=== PATIENT | female | born 1990 | race Caucasian/White ===

== ENCOUNTER → 2019-06-18 16:10 | Outpatient (CLI) | payer OTHER, SELFPAY ==
[2019-06-18 16:42] LABS: Add Manual Diff / Slide Review NO; Basophils Absolute Auto 0 /uL (0-100); Basophils Percent Auto 0.2 % (0-2); Eosinophils Absolute Auto 0 /uL (0-450); Eosinophils Percent Auto 0.6 % (2-4); Hematocrit 37.5 % (36-46); Hemoglobin 12.5 g/dL (12.0-16.0); Lymphocytes Absolute Auto 1900 /uL (1100-4500); Lymphocytes Percent Auto 22.6 % (25-40); Mean Corpuscular HGB Conc 33.2 % (30-36); Mean Corpuscular Hemoglobin 29.4 PG (26-34); Mean Corpuscular Volume 88.5 fL (80-100); Monocytes Absolute Auto 400 /uL (0-900); Monocytes Percent Auto 4.3 % (3-14); Neutrophils Absolute Auto 6200 /uL (1500-7000); Neutrophils Percent Auto 72.3 % (50-75); Platelet Count 238 X10^3/uL (150-400); Red Blood Cell Count 4.23 X10^6/uL (4.0-5.2); Red Cell Distribution Width 13.8 % (11.6-14.8); White Blood Cell Count 8.6 X10^3/uL (4.5-11.0)
[2019-06-18 20:39] LABS: Urine N gonorrhoeae NOT DETECTED
[2019-06-18 20:40] LABS: Urine Chlamydia NOT DETECTED
[2019-06-19 05:47] LABS: RPR Screen Non Reactive (Non Reactive)
[2019-06-19 06:39] LABS: Varicella IgG Antibody 626 index (Immune >165)
[2019-06-19 16:36] LABS: Hepatitis B Surface Antigen NEGATIVE s/c (NEGATIVE); Rubella Antibody IgG 9.4 IU/mL (>15)
[2019-06-19 16:47] LABS: HIV 1 & 2 Ab/Ag 4th Gen Combo NEGATIVE (NEGATIVE); Hep C Virus Ab w/Reflex Quant NEGATIVE s/c (NEGATIVE)
== END ==
PROVIDERS: Referring Provider Specialist; Visit Provider Specialist
DX: Z34.81 Encounter for supervision of other normal pregnancy, first trimester (principal)
CPT/HCPCS: 36415; 80055; 86787; 86803; 86850; 86900; 86901; 87389; 87491; 87591

== ENCOUNTER → 2019-08-25 12:26 | Outpatient (CLI) | payer OTHER, SELFPAY ==
--- NOTE | 2019-08-25 12:28 | DI.US.S_ITS ---
PROCEDURE: US OB >= 14 WEEKS FETUS INDICATIONS: ANATOMY OUTSIDE/PRIOR DATING DATA: Last menstrual period (LMP): 03/30/19. LMP-based estimated date of delivery (JEANMARIE): 01/04/20. First dating scan (date and location): 06/18/19. Estimated date of delivery (JEANMARIE) from first dating scan: 01/13/20. TECHNIQUE: Real-time scanning was performed of the fetus, with image documentation and biometric measurements. Endovaginal scanning: No COMPARISON: [facility], , OB <= 14 WEEKS FETUS, 06/18/2019, 15:39. FINDINGS: General: A single living intrauterine gestation is present. Presentation: Transverse Placenta: Placental position is posterior, without previa. Amniotic fluid index: 7.2 cm, normal range is 5-24 cm. heart rate: 147 beats per minute. Maternal cervical canal: 7.2 cm long. Normal lower limit is 2.5 cm. biometrics: Biparietal diameter: 20 weeks 3 days Head circumference: 20 weeks 5 days Abdominal circumference: 21 weeks Femur length: 20 weeks 6 days Estimated gestational age from initial scan: 19 weeks 6 days Composite gestational age from present scan: 20 weeks 5 days Estimated weight and percentile: 32 g; 93rd percentile Measurement variability for biometric dating: +/- 7 days from 14 weeks to 15 weeks 6 days gestation, +/- 10 days from 16 weeks to 21 weeks 6 days gestation, +/- 2 weeks from 22 weeks to 27 weeks 6 days gestation, +/- 3 weeks for 28 weeks gestation or later. weight reference: 4500 g or EFW >90/95% is considered macrosomia or large for gestational age. EFW <10% is small for gestational age. EFW 5% or less is considered intra-uterine growth restriction. Anatomic survey: Neuro: Ventricles are non-dilated at less than 10 mm. Cisterna magna is normal at 3-11 mm. Cerebellum is normal in size and morphology. Nuchal skin fold: Normal at less than 6 mm between 14-21 weeks gestational age. Face: Suboptimally visualized. Spine: No evidence for spina bifida. Heart: 4-chambered heart is present, with normal ventricular outflow tracts. Diaphragm: Diaphragm is intact. Stomach: Left-sided stomach is present. Kidneys: No hydronephrosis. Normal is less than 5 mm in 2nd trimester, less than 7 mm in 3rd trimester. Cord: 3-vessel cord has orthotopic insertion. Bladder: Normal in size. Extremities: All 4 extremities identified. IMPRESSION: 1. Single living IUP redemonstrated and interval growth is upper limits of normal. face suboptimally visualized; otherwise normal anatomy. Followup recommended. Dictated by: Ken TYSON Interpreted: Chino Richmond MD on 08/25/2019 at 14:30 Approved by: Chino Richmond M.D. on 08/26/2019 at 13:08
[2019-08-27 20:36] LABS: AFP, Serum 50.3 ng/mL (.); Calc Gestational Age Ultrasound (.); Estriol, Free 1.75 ng/mL (.); Inhibin A, Dimeric 135.14 pg/mL (.); Inhibin A, MoM 0.86 (.); Maternal Ethnicity Caucasian (.); Maternal Weight 212 lbs (.); Number of Fetuses No (.); OSBR Risk 1 IN 8106 (.); Results Report (.); Test Results *Screen Negative* (.); hCG, MoM 1.45 (.); hCG, Serum 28984 mIU/mL (.)
== END ==
PROVIDERS: Referring Provider Specialist; Visit Provider Specialist
DX: Z34.82 Encounter for supervision of other normal pregnancy, second trimester (principal); Z3A.20 20 weeks gestation of pregnancy
CPT/HCPCS: 36415; 76811; 82105; 82677; 84702; 86336; 87086

== ENCOUNTER → 2019-08-25 15:15 | Outpatient (CLI) | payer OTHER, SELFPAY | PROVIDERS: Visit Provider Specialist | DX: Z34.82 Encounter for supervision of other normal pregnancy, second trimester (principal) | CPT/HCPCS: 87086 ==

== ENCOUNTER → 2019-10-02 09:04 | Outpatient (CLI) | payer OTHER, SELFPAY ==
[2019-10-02 11:24] LABS: Hematocrit 36.8 % (36-46); Hemoglobin 12.4 g/dL (12.0-16.0)
[2019-10-02 11:51] LABS: GTT (PREG) 1 Hour PP 50gm Dose 64 mg/dL (76-139)
== END ==
PROVIDERS: PCP Specialist; Referring Provider Specialist; Visit Provider Specialist
DX: O26.899 Other specified pregnancy related conditions, unspecified trimester (principal); Z67.91 Unspecified blood type, Rh negative
CPT/HCPCS: 36415; 82950; 85014; 85018; 86850

== ENCOUNTER → 2019-12-22 10:35 | Outpatient (CLI) | payer OTHER, SELFPAY ==
[2019-12-23 12:09] LABS: Strep Grp B PCR NEG for Grp B Strep
== END ==
PROVIDERS: PCP Specialist; Visit Provider Obstetrics & Gynecology
DX: Z34.83 Encounter for supervision of other normal pregnancy, third trimester (principal); Z3A.36 36 weeks gestation of pregnancy
CPT/HCPCS: 87653

== ENCOUNTER 2020-01-17 04:01 | Inpatient (IN) | payer OTHER, SELFPAY ==
[2020-01-17] MEDS: LACTATED RINGERS 1,000 ML 100 ML IV ×2 (04:29→06:49)
[2020-01-17 04:34] LABS: Add Manual Diff / Slide Review NO; Basophils Absolute Auto 0 /uL (0-100); Basophils Percent Auto 0.2 % (0-2); Eosinophils Absolute Auto 0 /uL (0-450); Eosinophils Percent Auto 0.1 % (2-4); Hematocrit 36.9 % (36-46); Hemoglobin 12.5 g/dL (12.0-16.0); Lymphocytes Absolute Auto 1700 /uL (1100-4500); Lymphocytes Percent Auto 12.9 % (25-40); Mean Corpuscular HGB Conc 33.8 % (30-36); Mean Corpuscular Hemoglobin 29.1 PG (26-34); Mean Corpuscular Volume 86.1 fL (80-100); Monocytes Absolute Auto 900 /uL (0-900); Monocytes Percent Auto 6.7 % (3-14); Neutrophils Absolute Auto 10300 /uL (1500-7000); Neutrophils Percent Auto 80.1 % (50-75); Platelet Count 221 X10^3/uL (150-400); Red Blood Cell Count 4.29 X10^6/uL (4.0-5.2); Red Cell Distribution Width 13.8 % (11.6-14.8); White Blood Cell Count 12.8 X10^3/uL (4.5-11.0)
[2020-01-17 04:35] LABS: COVID19 -Nasal RAPID Negative (Negative)
[2020-01-17] MEDS: FENT 2MCG/ML BUPIV 0.125% EPI 200 MCG/100 ML PLAST..BAG 10 MCG EPIDURAL (05:00)
--- NOTE | 2020-01-17 08:21 | P.HPOB_ITS ---
OB HPI Date/Time Date of admission: 01/17/20 Date Patient Seen: 01/17/20 Time Patient Seen: 07:30 History of Present Condition Chief complaint: OBS : 2 Para: 1 Estimated Date of Delivery: 01/13/20 Estimated Gestational Age (weeks): 40 Narrative: Olga Carney is a 29 year old G2 now P2 002 who presented at 40 w eeks 4 days at 5 cm dilated, with SROM for thick meconium shortly after arrival. The patient progressed rapidly through the active stage of labor and after short 2nd stage, was delivered of a healthy baby boy as detailed in the delivery note. The patient reports that prior to beginning contractions, she had no obstetrical or other complaints. She has had otherwise uncomplicated , and has a history of uncomplicated term vaginal delivery of an 8 lb 14 oz baby girl. She has no contributory medical, surgical, family, or social history. History of Present care: good care, initiated at week # (10) and number of visits (10) Dating criteria: based on 1st trimester US only Ultrasounds: normal 1st trimester US and normal mid trimester US Obstetrical complications: none Medical complications: none Preadmission Labs Blood type: 0 (-) negative (Receive RhoGAM at 28 weeks) -: Antibody screen: negative, GBS status: negative, HBsAG: negative, HIV: negative and RPR/VDLR: negative -: Chlamydia screen: not detected and Gonorrhea screen: not detected -: Rubella: not immune and Varicella: immune Quad screen: Normal Urine: wnl 1 hr GTT: 64 Prior (ies) History: G1: 05/20/18, , 40 wks, F, 8#14 (per patient), uncomplicated Evaluation Evaluation Baseline heart rate: 140 Variability: Moderate (11-25) monitor accelerations: Present monitor decelerations: Variable Uterine Contraction Intensity: Strong/Firm Laboratory results: Laboratory Tests 01/17/20 01/17/20 01/17/20 04:15 04:25 04:25 WBC 12.8 H RBC 4.29 Hgb 12.5 Hct 36.9 MCV 86.1 MCH 29.1 MCHC 33.8 RDW 13.8 Plt Count 221 Neut % (Auto) 80.1 H Lymph % (Auto) 12.9 L Sanders % (Auto) 6.7 Eos % (Auto) 0.1 L Baso % (Auto) 0.2 Neut # (Auto) 02710 H Lymph # (Auto) 1700 Sanders # (Auto) 900 Eos # (Auto) 0 Baso # (Auto) 0 COVID-19 PCR Negative Blood Type O Negative Antibody Screen Negative PFSH Medical History Chicken pox (Resolved ~1998) Genital warts (Inactive ~2013) Migraines (Acute) (spontaneous vaginal delivery) (Acute ~05/20/18) Surgical History Anesthesia (Resolved) H/O wisdom tooth extraction (Acute) S/P nasal septoplasty (Acute) Family History Mother No problems noted. Father Hypertension Grandmother No problems noted. Grandfather No problems noted. Grandmother Myocardial infarction Grandfather Cancer Colon cancer Social History marital status: number of children: 1 lives independently: Yes pets and animals: No education level: college (BA ) occupational status: employed current occupational exposures/hazards: No Previous occupational history: traveling missionary special luzmaria needs: No Smoking Status: Never smoker second hand exposure: No alcohol intake: former (non- : social ) substance use type: does not use Meds Home Medications and Allergies Home Medications Medication Instructions Recorded Confirmed Type ascorbic acid (vitamin C) 1,000 mg 500 mg PO DAILY 06/18/19 01/17/20 History tablet cholecalciferol (vitamin D3) 25 25 mcg PO DAILY 06/18/19 01/17/20 History mcg (1,000 unit) capsule prenat.vits,rusty,[id number] 1 tab PO DAILY 06/18/19 01/17/20 History Allergies Allergy/AdvReac Type Severity Reaction Status Date / Time No Known Drug Allergies Allergy Verified 01/17/20 04:31 Review of Systems Constitutional Constitutional: Reports system reviewed and no additional complaints, except as documented Cardiovascular Cardiovascular: Reports system reviewed and no additional complaints, except as documented Respiratory Respiratory: Reports system reviewed and no additional complaints, except as documented Gastrointestinal Gastrointestinal: Reports system reviewed and no additional complaints, except as documented Genitourinary Genitourinary: Reports system reviewed and no additional complaints, except as documented Neurologic Neurologic: Reports system reviewed and no additional complaints, except as documented Exam Vital Signs (past 8 hours): 119/74, P 64 Const General: cooperative, healthy appearing and comfortable GI Palpation: soft and No tender Objective Labs Result Diagrams: 01/17/20 04:25 Labs: Laboratory Results - last 24 hr 01/17/20 01/17/20 01/17/20 04:15 04:25 04:25 WBC 12.8 H RBC 4.29 Hgb 12.5 Hct 36.9 MCV 86.1 MCH 29.1 MCHC 33.8 RDW 13.8 Plt Count 221 Neut % (Auto) 80.1 H Lymph % (Auto) 12.9 L Sanders % (Auto) 6.7 Eos % (Auto) 0.1 L Baso % (Auto) 0.2 Neut # (Auto) 73080 H Lymph # (Auto) 1700 Sanders # (Auto) 900 Eos # (Auto) 0 Baso # (Auto) 0 COVID-19 PCR Negative Blood Type O Negative Antibody Screen Negative Assessment and Plan Assessment and Plan Assessment and Plan narrative: Patient doing well immediately s/p uncomplicated vaginal delivery. For routine care.
--- NOTE | 2020-01-17 08:31 | PM.OBPRVD ---
Events: Meconium Stained Fluid Labor & Delivery Delivery date: 01/17/20 Intrapartal events: Acceleration and Deceleration Delivery monitor: external FHT and external uterine Route of delivery: Episiotomy description: None L&D Laceration Description: Perineal - 2nd Degree Delivery repair: vicryl Estimated blood loss (mL): 100 Anesthesia type: Epidural Narrative: This patient is a 29-year-old now para 2 who presented in active labor, progressed, and was delivered of a healthy baby boy after short 2nd stage. Patient was noted to have thick meconium after spontaneous rupture of membranes. A loose nuchal cord was reduced at the perineum, and the shoulders delivered with ease. Delayed cord clamping was performed with the baby on the maternal abdomen. A second-degree perineal laceration was repaired in the usual fashion with 3-0 Vicryl, and the placenta delivered spontaneously and intact shortly after delivery and with a three-vessel cord. The patient received 30 milliunits of Pitocin per usual protocol, the EBL was 100 cc. There were no intrapartum or immediate complications. Weight was 10+4, Apgars 8+9. [place] Baby 1: gender: Male Presentation: vertex position: Right Occiput Anterior cord vessel description: Nuchal Cord (x1) score (1 min): 8 score (5 min): 9 Plan for aftercare: Routine care
[2020-01-17] MEDS: IBUPROFEN 600 MG TABLET PO ×2 (16:55→23:56)
[2020-01-17] MEDS: ACETAMINOPHEN 325 MG TABLET 650 MG PO (19:25)
[2020-01-18] MEDS: IBUPROFEN 600 MG TABLET PO (07:42)
--- NOTE | 2020-01-18 09:58 | PM.OBDS.1 ---
Discharge Providers Provider Date of admission: 01/17/20 04:01 Discharge Date: 01/18/20 Primary care physician: Kailee Ramírez MD Consults: 01/17/20 04:16 Consult to Anesthesiology Urgent Comment: Consulting Provider: Chase Gill Reason for consultation: pain for labor 01/18/20 08:21 Consult to Business Administration Instructor Routine Comment: Discharge provider: Priya Muñoz MD Summary Hospital Course Date Patient Seen: 01/18/20 Time Patient Seen: 09:58 Procedures: Hospital Course: This patient is a 29-year-old now para 2 who presented in active labor. She progressed rapidly through the active phase, and after short 2nd stage, was delivered of a healthy, 10 lb 4 oz baby boy without complication. The shoulders delivered with ease, and a second-degree perineal laceration was repaired in the usual fashion. The period was uncomplicated, the patient was discharged on day 1 with plans for routine follow-up in Sunday. Peripartum Data Delivery Method: Natural Vaginal Laceration Description: Perineal - 2nd Degree Procedures: complications: none [place] 1: Gender: Male Disposition of : home Status at Discharge Cognitive/behavioral status at discharge: oriented Functional status at discharge: independent ambulation Overall status at discharge: patient is progressing back to baseline Time Spent with Patient Time attestation: Total time spent providing and/or coordinating discharge services: Time spent: Greater than 30 minutes Objective Labs Result Diagrams: 01/17/20 04:25 Labs: Laboratory Results - last 24 hr 01/18/20 06:33 Maternal Bleed Negative Exam Vital Signs (past 8 hours): 130/76, hr 63 Narrative Exam Narrative: Patient resting in bed with baby. Reports good pain control, mild to moderate lochia, normal bladder habits, passing flatus, tolerating p.o., ambulating, no other complaints. Resp Effort & Inspection: normal respiratory effort Auscultation: clear to auscultation bilaterally Cardio Rate: regular rate Rhythm: regular rhythm GI Palpation: soft and No tender Other: Fundus firm, well below U Skin General: no rashes or lesions noted Extrem General: normal to inspection Discharge Plan Discharge Plan Patient Disposition: Home Discharge orders & Medications Prescriptions: Continued prenat.vits,rusty,lwt-xoel-xammp Tablet 1 tab PO DAILY RF: 0 cholecalciferol (vitamin D3) 25 mcg (1,000 unit) capsule 25 mcg PO DAILY RF: 0 ascorbic acid (vitamin C) 1,000 mg tablet 500 mg PO DAILY RF: 0 Follow up/Referrals: Kailee Ramírez MD [Primary Care Provider] - Diet/Activity/Treatments Diet: Regular Activity: Nothing in the vagina for 6 weeks. Avoid heavy lifting for 6 weeks. If you have increasing fevers, chills, nausea, vomiting, headaches, or any other symptoms or concerns, call the office or come to the emergency room. Skin/Wound/Dressing Care Report to your healthcare provider any signs of infection, such as:: chills, fever, night sweats, increased pain, unusual drainage and unusual redness Visit Report/Discharge Packet Instructions: DI for Labor and Delivery, Vaginal Discharge Data Primary Care Provider: Kailee Ramírez Attending Provider: Kailee Ramírez Admit Date/Time: 01/17/20 04:01
[2020-01-18 10:04] VITALS: BP 130/76; PULSE 63; RESP 16; TEMP 36.3
[2020-01-18] MEDS: RHO(D) IMMUNE GLOBULIN 1,500 UNIT SYRINGE 1500 UNIT IM (10:26)
[2020-01-18] MEDS: MEASLES,MUMPS,RUBELLA VACC/PF 0.5 ML VIAL SUBCUT (10:32)
== END 2020-01-18 11:54 | disposition home or self-care (01) | DRG 807 ==
PROVIDERS: Admitting Provider Specialist; PCP Specialist; Referring Provider Specialist; Visit Provider Specialist
DX: O48.0 Post-term pregnancy (principal); Z37.0 Single live birth; O77.0 Labor and delivery complicated by meconium in amniotic fluid; Z3A.40 40 weeks gestation of pregnancy; O69.81X0 Labor and delivery complicated by cord around neck, without compression, not applicable or unspecified; O70.1 Second degree perineal laceration during delivery; Z11.59 Encounter for screening for other viral diseases
CPT/HCPCS: 01967; 36415; 59050; 59400; 59409; 85025; 85461; 86850; 86900; 86901; 87635; G0378; G0379; J2790